=== PATIENT | male | born 1940 | race Caucasian/White ===

== ENCOUNTER → 2016-08-31 | Outpatient (CLI) | payer MEDICARE, OTHER ==
[~2016-08-31] MED LIST: 1-ME1LIQ PO; ALLO300T2 PO; ATEN-104 PO; HYDR12.56; HYZA100T4 PO; LORTA5 PO; SIMV20 PO
[2016-08-31 11:07] LABS: AUTOMATED NEUTROPHIL # 2.4 TH/MM3 (1.8-7.7); BASOPHIL % 0.9 % (0.0-2.0); EOSINOPHIL # 0.1 TH/MM3 (0-0.4); EOSINOPHIL % 2.7 % (0.0-4.0); HEMATOCRIT 36.2 % (39.0-51.0); LYMPH % 26.6 % (9.0-44.0); MEAN CELL VOLUME 91.3 FL (80.0-100.0); MEAN CORPUSCULAR HEMOGLOBIN 31.5 PG (27.0-34.0); MEAN CORPUSCULAR HGB CONC 34.5 % (32.0-36.0); MONO % 7.8 % (0.0-8.0); RED BLOOD COUNT 3.97 MIL/MM3 (4.50-5.90); RED CELL DISTRIBUTION WIDTH 14.2 % (11.6-17.2); WHITE BLOOD COUNT 3.9 TH/MM3 (4.0-11.0)
[2016-08-31 11:27] LABS: ALKALINE PHOSPHATASE 65 U/L (45-117); ALT (GPT) 22 U/L (12-78); ANION GAP 9 MEQ/L (5-15); AST (GOT) 20 U/L (15-37); BICARBONATE 26.3 MEQ/L (21.0-32.0); BLOOD UREA NITROGEN 21 MG/DL (7-18); CHLORIDE 107 MEQ/L (98-107); GLOMERULAR FILTRATION RATE 66 ML/MIN (>89); GLUCOSE,FASTING 89 MG/DL (74-99); HDL CHOLESTEROL 49.5 MG/DL (40.0-60.0); LDL CHOLESTEROL 91 MG/DL (0-99); POTASSIUM 3.9 MEQ/L (3.5-5.1); SODIUM (NA) 142 MEQ/L (136-145); TOTAL BILIRUBIN ADULT 0.9 MG/DL (0.2-1.0); URIC ACID 3.8 MG/DL (2.6-7.2)
[2016-08-31 13:11] LABS: HEMO FLAGS AUTO DIFF
[2016-08-31 13:19] LABS: PLATELET COUNT 8 TH/MM3 (150-450)
[2016-08-31 13:29] LABS: PLATELET ESTIMATE SMEAR RARE (NORMAL)
[2016-08-31 13:30] LABS: PLATELET MORPHOLOGY ENLARGED (NORMAL); SCAN/DIFF AUTO DIFF CONFIRMED
== END ==
LOC: PLAB 08:49
PROVIDERS: ATTEND Family Medicine
DX: E78.2 Mixed hyperlipidemia (principal); D69.3 Immune thrombocytopenic purpura
CPT/HCPCS: 36415; 80053; 80061; 84550; 85025

== ENCOUNTER → 2017-03-02 | Outpatient (CLI) | payer MEDICARE, OTHER ==
[2017-03-02 08:18] LABS: AUTOMATED NEUTROPHIL # 2.8 TH/MM3 (1.8-7.7); BASOPHIL % 0.6 % (0.0-2.0); EOSINOPHIL # 0.1 TH/MM3 (0-0.4); EOSINOPHIL % 2.9 % (0.0-4.0); HEMATOCRIT 37.9 % (39.0-51.0); LYMPH % 18.9 % (9.0-44.0); LYMPHOCYTE # 0.8 TH/MM3 (1.0-4.8); MEAN CELL VOLUME 91.6 FL (80.0-100.0); MEAN CORPUSCULAR HEMOGLOBIN 31.5 PG (27.0-34.0); MEAN CORPUSCULAR HGB CONC 34.3 % (32.0-36.0); MONO % 8.5 % (0.0-8.0); NEUT % 69.1 % (16.0-70.0); PLATELET COUNT 35 TH/MM3 (150-450); RED BLOOD COUNT 4.14 MIL/MM3 (4.50-5.90); RED CELL DISTRIBUTION WIDTH 14.3 % (11.6-17.2); WHITE BLOOD COUNT 4.1 TH/MM3 (4.0-11.0)
[2017-03-02 08:33] LABS: HEMO FLAGS AUTO DIFF
[2017-03-02 08:58] LABS: PLATELET ESTIMATE SMEAR LOW (NORMAL); PLATELET MORPHOLOGY ENLARGED (NORMAL); SCAN/DIFF AUTO DIFF CONFIRMED
[2017-03-02 10:12] LABS: ALT (GPT) 25 U/L (12-78); ANION GAP 7 MEQ/L (5-15); AST (GOT) 21 U/L (15-37); BICARBONATE 25.7 MEQ/L (21.0-32.0); BLOOD UREA NITROGEN 20 MG/DL (7-18); CHLORIDE 109 MEQ/L (98-107); GLOMERULAR FILTRATION RATE 69 ML/MIN (>89); GLUCOSE,FASTING 87 MG/DL (74-99); POTASSIUM 3.8 MEQ/L (3.5-5.1); SODIUM (NA) 142 MEQ/L (136-145); URIC ACID 4.4 MG/DL (2.6-7.2)
[2017-03-02 10:14] LABS: ALKALINE PHOSPHATASE 65 U/L (45-117); HDL CHOLESTEROL 52.2 MG/DL (40.0-60.0); LDL CHOLESTEROL 61 MG/DL (0-99); TOTAL BILIRUBIN ADULT 0.9 MG/DL (0.2-1.0)
== END ==
LOC: PLAB 07:55
PROVIDERS: ATTEND Family Medicine
DX: E78.2 Mixed hyperlipidemia (principal); D69.3 Immune thrombocytopenic purpura
CPT/HCPCS: 36415; 80053; 80061; 84550; 85025

== ENCOUNTER 2017-07-24 18:18 | Inpatient (IN) | payer MEDICARE, OTHER ==
[~2017-07-24] VITALS: Ht 177.8 cm; Wt 90.5 kg
[2017-07-24 18:44] VITALS: BP 186/95; PULSE 80; RESP 18; TEMP 98.2; O2SAT 95
--- NOTE | 2017-07-24 21:08 | PD ---
HPI Chief Complaint: Abnormal Results Time Seen by Provider: 20:53 Travel History International Travel<30 days: No Contact w/Intl Traveler<30days: No Traveled to known affect area: No History of Present Illness HPI The patient is a 76 year old male who presents to the [facility] emergency department with a history of being called by his customer experience professional office earlier today regarding abnormal labs. The patient was told that his platelet count was 1 and that he needed to go to the emergency department immediately. The patient reports that he has a history of ITP. The patient reports that every 6 weeks he has blood work drawn. His last platelet count was 49. He reports that he has been completely asymptomatic. He denies any recent bruising. He denies having any blood in his stool or black or tarry stools. He denies having any blood in his urine, epistaxis, or hemoptysis. The patient denies having any headaches. He reports that he played golf today and has overall been well. On review of systems otherwise he denies having any recent fevers, cough or congestion,neck pain, chest pain, shortness of breath, abdominal pain, vomiting, diarrhea, urinary symptoms, or neurologic symptoms. [facility] Past Medical History Narrative Medical The patient's past medical history is significant for non-Hodgkin's lymphoma stage I which was treated with radiation therapy and is currently in remission, history of ITP, gout, hyperlipidemia, hypertension, macular degeneration. Cancer: Yes (Lymphoma - Received Radiation and Chemo 2009) High Cholesterol: Yes Chemotherapy: Yes Diminished Hearing: No Hypertension: Yes Immunizations Current: Yes (shingles vaccine) Past Surgical History Narrative Surgical The patient's past surgical history is significant for bilateral knee replacement, cholecystectomy, lipoma removal from the back, [id number] placement, tonsillectomy, shoulder and finger surgery. Cholecystectomy: Yes Other Surgery: Yes (fatty benign tumor removal, Tumor Right Thigh- lymphoma) Social History Alcohol Use: Yes (2-3 drinks per day) Tobacco Use: No Substance Use: No Allergies-Medications (Allergen,Severity, Reaction): Coded Allergies: No Known Allergies (Unverified Allergy, Unknown, 07/24/17) Reported Meds & Prescriptions Reported Meds & Active Scripts Active Reported Atenolol 100 Mg Tab 100 Mg PO DAILY Clonidine (Clonidine HCl) 0.1 Mg Tab 0.1 Mg PO BID Simvastatin 10 Mg Tab 10 Mg PO DAILY Losartan (Losartan Potassium) 100 Mg Tab 100 Mg PO DAILY Amlodipine (Amlodipine Besylate) 10 Mg Tab 10 Mg PO DAILY Allopurinol 300 Mg Tab 300 Mg PO DAILY Review of Systems Except as stated in HPI: all other systems reviewed are Neg General / Constitutional: No: Fever Eyes: No: Visual changes HENT: No: Headaches Cardiovascular: No: Chest Pain or Discomfort Respiratory: No: Shortness of Breath Gastrointestinal: No: Abdominal Pain Genitourinary: No: Dysuria Musculoskeletal: No: Pain Skin: No Rash Neurologic: No: Weakness, Focal Abnormalities, Change in Mentation, Slurred Speech, Sensory Disturbance Psychiatric: No: Depression Endocrine: No: Polydipsia Hematologic/Lymphatic: No: Easy Bruising Physical Exam Narrative General: The patient is a well-developed well-nourished male in no acute distress. Head and Neck exam: Head is normocephalic atraumatic. Eyes: EOMI, pupils are equal round and reactive to light. Nose: Midline septum with pink mucous membranes Mouth: Dentition unremarkable. Moist mucus membranes. Posterior oropharynx is not erythematous. No tonsillar hypertrophy. Uvula midline. Airway patent. Neck: No palpable lymphadenopathy. No nuchal rigidity. No thyromegaly. Cardiovascular: Regular rate and rhythm without murmurs, gallops, or rubs. Lungs: Clear to auscultation bilaterally. No wheezes, rhonchi, or rales. Abdomen: Soft, without tenderness to palpation in all 4 quadrants of the abdomen. No guarding, rebound, or rigidity. Normal bowel sounds are audible. No tenderness on palpation of McBurney's point. Negative Lyle sign. Extremities: No clubbing, cyanosis, or edema. 2+ pulses in all 4 extremities. No calf tenderness on palpation. Back: No spinous process tenderness to palpation. No costovertebral angle tenderness to palpation. Neurologic Exam: Grossly nonfocal. Skin Exam: No rash noted. Intact skin that is warm and dry. Data Data Last Documented VS Vital Signs Date Time Temp Pulse Resp B/P (MAP) Pulse Ox O2 Delivery O2 Flow Rate FiO2 07/24/17 21:34 78 18 183/93 (123) 99 Room Air 07/24/17 18:44 98.2 Orders Orders Electrocardiogram (07/24/17 20:55) Complete Blood Count With Diff (07/24/17 20:55) Comprehensive Metabolic Panel (07/24/17 20:55) Troponin I (07/24/17 20:55) Prothrombin Time / Inr (Pt) (07/24/17 20:55) Act Partial Throm Time (Ptt) (07/24/17 20:55) Urinalysis - C+S If Indicated (07/24/17 20:55) Magnesium (Mg) (07/24/17 20:55) Chest, Single Ap (07/24/17 20:55) Iv Access Insert/Monitor (07/24/17 20:55) Ecg Monitoring (07/24/17 20:55) Oximetry (07/24/17 20:55) Type And Screen (07/24/17 20:55) Platelet Pheresis (07/24/17 20:55) Methylprednisolone So Succ Inj (Solumedr (07/25/17 00:00) Vital Signs (Adult) Q15MX4,Q1H (07/24/17 21:19) ^ Treatment Of Side Effects (07/24/17 21:19) Sodium Chlorid 0.9% 500 Ml Inj (Ns 500 M (07/24/17 21:30) Acetaminophen (Tylenol) (07/24/17 21:30) Dextrose 5% In [place] 500 Ml Inj (D5w 500 (07/24/17 22:19) Diphenhydramine (Benadryl) (07/24/17 21:30) Immune Globulin Inj (Privigen Inj) (07/24/17 22:30) Diphenhydramine Inj (Benadryl Inj) (07/24/17 22:30) Epinephrine (1:1000) Inj (Adrenalin (1:1 (07/24/17 22:30) Admit Order (Ed Use Only) (07/24/17 22:45) Labs Laboratory Tests Test 07/24/17 21:10 White Blood Count 5.4 TH/MM3 Red Blood Count 4.39 MIL/MM3 Hemoglobin 13.8 GM/DL Hematocrit 40.0 % Mean Corpuscular Volume 91.1 FL Mean Corpuscular Hemoglobin 31.5 PG Mean Corpuscular Hemoglobin Concent 34.6 % Red Cell Distribution Width 14.3 % Platelet Count 5 TH/MM3 Mean Platelet Volume 11.5 FL Neutrophils (%) (Auto) 64.8 % Lymphocytes (%) (Auto) 22.3 % Monocytes (%) (Auto) 9.0 % Eosinophils (%) (Auto) 3.1 % Basophils (%) (Auto) 0.8 % Neutrophils # (Auto) 3.5 TH/MM3 Lymphocytes # (Auto) 1.2 TH/MM3 Monocytes # (Auto) 0.5 TH/MM3 Eosinophils # (Auto) 0.2 TH/MM3 Basophils # (Auto) 0.0 TH/MM3 CBC Comment AUTO DIFF Differential Comment AUTO DIFF CONFIRMED Platelet Estimate RARE Platelet Morphology Comment ENLARGED Prothrombin Time 9.6 SEC Prothromb Time International Ratio 0.9 RATIO Activated Partial Thromboplast Time 30.7 SEC Blood Urea Nitrogen 16 MG/DL Creatinine 1.15 MG/DL Random Glucose 95 MG/DL Total Protein 7.6 GM/DL Albumin 4.2 GM/DL Calcium Level 8.8 MG/DL Magnesium Level 2.3 MG/DL Alkaline Phosphatase 78 U/L Aspartate Amino Transf (AST/SGOT) 20 U/L Alanine Aminotransferase (ALT/SGPT) 25 U/L Total Bilirubin 0.8 MG/DL Sodium Level 140 MEQ/L Potassium Level 3.7 MEQ/L Chloride Level 106 MEQ/L Carbon Dioxide Level 25.0 MEQ/L Anion Gap 9 MEQ/L Estimat Glomerular Filtration Rate 62 ML/MIN Troponin I LESS THAN 0.02 NG/ML MDM Medical Decision Making Medical Screen Exam Complete: Yes Emergency Medical Condition: Yes Medical Record Reviewed: Yes Interpretation(s) Last Impressions Chest X-Ray 07/24/172054 Signed Impressions: Service Date/Time: Monday, July 24, 2017 21:21 - CONCLUSION: No acute disease. Da Lorenzo MD Differential Diagnosis ITP, versus TTP, versus medication induced thrombocytopenia Narrative Course During the course of the patient's emergency department visit, the patient's history, examination, and differential diagnosis were reviewed with the patient. The patient was placed on a compliance monitor with oximetry and frequent blood pressure monitoring. The patient had IV access obtained and blood work sent for analysis. The patient was typed and screened for blood, 1 unit of platelet pheresis will be placed on hold. The patient at this time has no signs of active bleeding. A call has been placed out to the patient's customer experience professional, Dr. Turner. The patient had an EKG done on arrival that shows a sinus rhythm of 69, QRS duration is 109 ms, QTC [address] segment elevation. The patient was initially provided IVIG per the recommendations of his customer experience professional along with Solu-Medrol IV. 1 unit of platelet pheresis was also placed on hold. The patient's laboratory studies were reviewed and remarkable for white count of 5.4, hemoglobin 13.8, platelets 5, monocytes 9, CMP is unremarkable, troponin I is less than 0.02, PT 9.6, PTT 30.7, urinalysis is within normal limits Radiology studies were reviewed and remarkable for a chest x-ray that shows no acute cardiopulmonary disease. The patient's results were discussed with the patient, including the plan of care. I explained that further testing and/ or monitoring is indicated based on the patient's history, examination, and/ or laboratory findings. Therefore, I recommended admission for additional evaluation. The patient expressed understanding and was agreeable with this plan. The patient was admitted to the hospital in stable condition and sent to a bed under the care of the [facility] service. Physician Communication Physician Communication The patient's case including history, pertinent physical examination findings, and laboratory studies were discussed with Dr. Turner and Dr. Seth. It was agreed that the patient would be admitted to the [facility] service. Diagnosis Primary Impression: Chronic ITP (idiopathic thrombocytopenia) Additional Impression: Thrombocytopenia Admitting Information Admitting Physician Requests: it Jackie Leroy MD Jul 24, 2017 21:08
[2017-07-24 21:34] VITALS: BP 183/93; PULSE 78; RESP 18; O2SAT 99
[2017-07-24] MEDS ORDERED: SIMV10TA PO (21:34)
[2017-07-24] MEDS ORDERED: ALLO300T2 PO (21:34)
[2017-07-24] MEDS ORDERED: AMLO10TA2 PO (21:34)
[2017-07-24] MEDS ORDERED: ATEN100T PO (21:34)
[2017-07-24] MEDS ORDERED: CLON0.1T PO (21:34)
[2017-07-24] MEDS ORDERED: LOSA100T PO (21:34)
[2017-07-24 21:53] LABS: AUTOMATED NEUTROPHIL # 3.5 TH/MM3 (1.8-7.7); BASOPHIL % 0.8 % (0.0-2.0); EOSINOPHIL # 0.2 TH/MM3 (0-0.4); EOSINOPHIL % 3.1 % (0.0-4.0); HEMOGLOBIN 13.8 GM/DL (13.0-17.0); LYMPH % 22.3 % (9.0-44.0); LYMPHOCYTE # 1.2 TH/MM3 (1.0-4.8); MEAN CELL VOLUME 91.1 FL (80.0-100.0); MEAN CORPUSCULAR HEMOGLOBIN 31.5 PG (27.0-34.0); MEAN CORPUSCULAR HGB CONC 34.6 % (32.0-36.0); MEAN PLATELET VOLUME 11.5 FL (7.0-11.0); MONOCYTE # 0.5 TH/MM3 (0-0.9); NEUT % 64.8 % (16.0-70.0); RED BLOOD COUNT 4.39 MIL/MM3 (4.50-5.90); RED CELL DISTRIBUTION WIDTH 14.3 % (11.6-17.2); WHITE BLOOD COUNT 5.4 TH/MM3 (4.0-11.0)
--- NOTE | 2017-07-24 21:56 | RADRPT ---
EXAM DATE/TIME: 07/24/2017 21:21 [place] COMPARISON: No previous studies available for comparison. INDICATIONS : Low platelets. MEDICAL HISTORY : Lymphoma. SURGICAL HISTORY : Left shoulder repair. ENCOUNTER: Initial ACUITY: 1 day PAIN SCORE: 0/10 LOCATION: Bilateral chest FINDINGS: A single view of the chest demonstrates the lungs to be symmetrically aerated without evidence of mas s, infiltrate or effusion. The cardiomediastinal contours are unremarkable. Osseous structures are intact. CONCLUSION: No acute disease. Da Lorenzo MD on July 24, 2017 at 21:52 Board Certified Radiologist. This report was verified electronically.
[2017-07-24 22:02] LABS: PLATELET COUNT 5 TH/MM3 (150-450)
[2017-07-24 22:07] LABS: ALBUMIN 4.2 GM/DL (3.4-5.0); AST (GOT) 20 U/L (15-37); BLOOD UREA NITROGEN 16 MG/DL (7-18); CALCIUM 8.8 MG/DL (8.5-10.1); CHLORIDE 106 MEQ/L (98-107); CREATININE 1.15 MG/DL (0.60-1.30); GLOMERULAR FILTRATION RATE 62 ML/MIN (>89); GLUCOSE,RANDOM 95 MG/DL (74-106); MAGNESIUM 2.3 MG/DL (1.5-2.5); SODIUM (NA) 140 MEQ/L (136-145)
[2017-07-24 22:11] LABS: INTERNATIONAL NORMALIZED RATIO 0.9 RATIO; PROTHROMBIN TIME - PATIENT 9.6 SEC (9.8-11.6)
[2017-07-24 22:20] LABS: ALKALINE PHOSPHATASE 78 U/L (45-117); ALT (GPT) 25 U/L (12-78); TOTAL BILIRUBIN ADULT 0.8 MG/DL (0.2-1.0); TOTAL PROTEIN 7.6 GM/DL (6.4-8.2); TROPONIN I LESS THAN 0.02 NG/ML (0.02-0.05)
[2017-07-24] MEDS: diphenhydrAMINE HCL 25 MG CAP PO SCH (22:20)
[2017-07-24] MEDS: SODIUM CHLORID 0.9% 500 ML INJ 500 ML IV SCH (22:20)
[2017-07-24] MEDS: ACETAMINOPHEN 325 MG TAB PO SCH (22:20)
[2017-07-24] MEDS ORDERED: diphenhydrAMINE HCL 50 MG/ML VIAL IV PUSH PRN (22:30)
[2017-07-24] MEDS ORDERED: EPINEPHrine HCL (1:1000) 1 MG/ML VIAL OTHER PRN (22:30)
[2017-07-24] MEDS: DEXTROSE 5% IN WATE 500 ML INJ 500 ML OTHER SCH (23:34)
[2017-07-24] MEDS: IMMUNE GLOBULIN IV SCH (23:35)
[2017-07-25] VITALS (20 sets, daily range): BP systolic 143–188; BP diastolic 81–108; PULSE 69–100; RESP 16–18; TEMP 97.2–98.7; O2SAT 94–100
[2017-07-25 00:07] LABS: BILIRUBIN, URINE NEG (NEG); BLOOD, URINE NEG (NEG); GLUCOSE,URINE NEG (NEG); KETONE, URINE NEG (NEG); NITRITE,URINE NEG (NEG); URINE COLOR LIGHT-YELLOW (YELLW/STRAW); URINE LEUKOCYTE ESTERASE NEG (NEG)
[2017-07-25] MEDS ORDERED: SODIUM CHLORIDE 0.9% FLUSH 10 ML FLUSH IV FLUSH PRN (00:45)
[2017-07-25] MEDS ORDERED: ACETAMINOPHEN 325 MG TAB PO PRN (00:45)
[2017-07-25] MEDS ORDERED: PROCHLORPERAZINE 25 MG SUPP RECTAL PRN (00:45)
[2017-07-25] MEDS ORDERED: NALOXONE HCL 0.4 MG/ML AMP IV PUSH PRN (00:45)
--- NOTE | 2017-07-25 03:29 | HHI.HP ---
HPI [facility] Primary Care Physician Wiliam Brown M.D. Admission Diagnosis ITP with severe thrombocytopenia Diagnoses: Travel History International Travel<30 Days: No Contact w/Intl Traveler <30 Da: No Traveled to Known Affected Are: No History of Present Illness 76-year-old male with a past medical history significant for ITP, history of lymphoma, hypertension and hyperlipidemia presents the emergency department for the evaluation of thrombocytopenia. The patient is followed by his accreditation coordinator , Dr. Turner, who does outpatient lab work every 6 weeks. The patient had his lab work done today and was told to come into the emergency department as his platelet count was 1. On arrival to the emergency department, repeat platelet count was 5. The patient denies bleeding anywhere. No hematuria, no hematemesis no dark, tarry stools or bright red blood per rectum. He denies any chest pain or shortness of breath. No abdominal pain. No nausea/vomiting/ diarrhea. No fatigue or weakness. Patient reports he feels "great" and was playing golf earlier in the day. Review of Systems Except as stated in HPI: all other systems reviewed are Neg Past Family Social History Past Medical History ITP History of lymphoma Hypertension Hyperlipidemia Past Surgical History Voice discectomy Finger surgery status post trauma Left shoulder reconstruction Left thigh tumor removal Reported Medications Reported Meds & Active Scripts Active Reported Atenolol 100 Mg Tab 100 Mg PO DAILY Clonidine (Clonidine HCl) 0.1 Mg Tab 0.1 Mg PO BID Simvastatin 10 Mg Tab 10 Mg PO DAILY Losartan (Losartan Potassium) 100 Mg Tab 100 Mg PO DAILY Amlodipine (Amlodipine Besylate) 10 Mg Tab 10 Mg PO DAILY Allopurinol 300 Mg Tab 300 Mg PO DAILY Allergies: Coded Allergies: No Known Allergies (Unverified Allergy, Unknown, 07/24/17) Family History Father with CHF Social History Quit tobacco in 1984. Occasional alcohol. Denies illicit drugs. Physical Exam Vital Signs Vital Signs Date Time Temp Pulse Resp B/P (MAP) Pulse Ox O2 Delivery O2 Flow Rate FiO2 07/25/17 03:11 78 16 156/84 (108) 98 Room Air 07/25/17 01:44 98.1 72 16 155/85 (108) 100 Room Air 07/25/17 01:07 98.1 71 16 148/85 (106) 98 Room Air 07/25/17 00:09 98.3 70 16 146/81 (102) 95 Room Air 07/25/17 00:04 69 16 143/83 (103) 96 Room Air 07/24/17 23:35 85 16 156/86 07/24/17 21:34 78 18 183/93 (123) 99 Room Air 07/24/17 21:25 Room Air 07/24/17 18:44 98.2 80 18 186/95 (125) 95 Physical Exam GENERAL: male lying in bed SKIN: No rashes, ecchymoses or lesions. Cool and dry. HEAD: Atraumatic. Normocephalic. No temporal or scalp tenderness. EYES: Pupils equal round and reactive. Extraocular motions intact. No scleral icterus. No injection or drainage. ENT: Nose without bleeding, purulent drainage or septal hematoma. Throat without erythema, tonsillar hypertrophy or exudate. Uvula midline. Airway patent. NECK: Trachea midline. No JVD or lymphadenopathy. Supple, nontender, no meningeal signs. CARDIOVASCULAR: Regular rate and rhythm without murmurs, gallops, or rubs. RESPIRATORY: Clear to auscultation. Breath sounds equal bilaterally. No wheezes , rales, or rhonchi. GASTROINTESTINAL: Abdomen soft, non-tender, nondistended. No hepato-splenomegaly , or palpable masses. No guarding. MUSCULOSKELETAL: Extremities without clubbing, cyanosis, or edema. No joint tenderness, effusion, or edema noted. No calf tenderness. NEUROLOGICAL: Awake and alert. Cranial nerves II through XII intact. Motor and sensory grossly within normal limits. Normal speech. Laboratory Laboratory Tests Test 07/24/17 21:10 07/24/17 22:50 White Blood Count 5.4 Red Blood Count 4.39 Hemoglobin 13.8 Hematocrit 40.0 Mean Corpuscular Volume 91.1 Mean Corpuscular Hemoglobin 31.5 Mean Corpuscular Hemoglobin Concent 34.6 Red Cell Distribution Width 14.3 Platelet Count 5 Mean Platelet Volume 11.5 Neutrophils (%) (Auto) 64.8 Lymphocytes (%) (Auto) 22.3 Monocytes (%) (Auto) 9.0 Eosinophils (%) (Auto) 3.1 Basophils (%) (Auto) 0.8 Neutrophils # (Auto) 3.5 Lymphocytes # (Auto) 1.2 Monocytes # (Auto) 0.5 Eosinophils # (Auto) 0.2 Basophils # (Auto) 0.0 CBC Comment AUTO DIFF Differential Comment AUTO DIFF CONFIRMED Platelet Estimate RARE Platelet Morphology Comment ENLARGED Prothrombin Time 9.6 Prothromb Time International Ratio 0.9 Activated Partial Thromboplast Time 30.7 Blood Urea Nitrogen 16 Creatinine 1.15 Random Glucose 95 Total Protein 7.6 Albumin 4.2 Calcium Level 8.8 Magnesium Level 2.3 Alkaline Phosphatase 78 Aspartate Amino Transf (AST/SGOT) 20 Alanine Aminotransferase (ALT/SGPT) 25 Total Bilirubin 0.8 Sodium Level 140 Potassium Level 3.7 Chloride Level 106 Carbon Dioxide Level 25.0 Anion Gap 9 Estimat Glomerular Filtration Rate 62 Troponin I LESS THAN 0.02 Urine Color LIGHT-YELLOW Urine Turbidity CLEAR Urine pH 7.0 Urine Specific [place] 1.006 Urine Protein NEG Urine Glucose (UA) NEG Urine Ketones NEG Urine Occult Blood NEG Urine Nitrite NEG Urine Bilirubin NEG Urine Urobilinogen LESS THAN 2.0 Urine Leukocyte Esterase NEG Urine WBC LESS THAN 1 Microscopic Urinalysis Comment CULT NOT INDICATED Result Diagram: 07/24/17210907/24/172109 Caprini VTE Risk Assessment Caprini VTE Risk Assessment: Mod/High Risk (score >= 2) Caprini Risk Assessment Model Point Value = 1 Point Value = 2 Point Value = 3 Point Value = 5 Age 41-60 Minor surgery BMI > 25 kg/m2 Swollen legs Varicose veins or History of unexplained or recurrent spontaneous Oral contraceptives or hormone replacement Sepsis (< 1 month) Serious lung disease, including pneumonia (< 1 month) Abnormal pulmonary function Acute myocardial infarction Congestive heart failure (< 1 month) History of inflammatory bowel disease Medical patient at bed rest Age 61-74 Arthroscopic surgery Major open surgery (> 45 min) Laparoscopic surgery (> 45 min) Malignancy Confined to bed (> 72 hours) Immobilizing plaster cast Central venous access Age >= 75 History of VTE Family history of VTE Factor V Leiden Prothrombin [id number] Lupus anticoagulant Anticardiolipin antibodies Elevated serum homocysteine Heparin-induced thrombocytopenia Other congenital or acquired thrombophilia Stroke (< 1 month) Elective arthroplasty Hip, pelvis, or leg fracture Acute spinal cord injury (< 1 month) Prophylaxis Regimen Total Risk Factor Score Risk Level Prophylaxis Regimen 0-1 Low Early ambulation 2 Moderate Order ONE of the following: *Sequential Compression Device (SCD) *Heparin 5000 units SQ BID 3-4 Higher Order ONE of the following medications: *Heparin 5000 units SQ TID *Enoxaparin/Lovenox 40 mg SQ daily (WT < 150 kg, CrCl > 30 mL/min) *Enoxaparin/Lovenox 30 mg SQ daily (WT < 150 kg, CrCl > 10-29 mL/min) *Enoxaparin/Lovenox 30 mg SQ BID (WT < 150 kg, CrCl > 30 mL/min) AND/OR *Sequential Compression Device (SCD) 5 or more Highest Order ONE of the following medications: *Heparin 5000 units SQ TID (Preferred with Epidurals) *Enoxaparin/Lovenox 40 mg SQ daily (WT < 150 kg, CrCl > 30 mL/min) *Enoxaparin/Lovenox 30 mg SQ daily (WT < 150 kg, CrCl > 10-29 mL/min) *Enoxaparin/Lovenox 30 mg SQ BID (WT < 150 kg, CrCl > 30 mL/min) AND *Sequential Compression Device (SCD) Assessment and Plan Assessment and Plan Assessment/plan: 1. Thrombocytopenia Patient with history of ITP Patient's oncologist, Dr. Turner consulted, appreciate recommendations IVIG and Solu-Medrol per hematology recommendations Monitor for signs of bleeding 2. Hypertension/hyperlipidemia Continue home medications FEN Heart healthy diet Electrolytes: Monitor and replete when necessary Holding pharmacologic anticoagulation secondary to thrombocytopenia Physician Certification 2 Midnight Certification Type: Admission for Inpatient Services Order for Inpatient Services The services are ordered in accordance with Medicare regulations or non- Medicare payer requirements, as applicable. In the case of services not specified as inpatient-only, they are appropriately provided as inpatient services in accordance with the 2-midnight benchmark. Estimated LOS (days): 2 2 days is the estimated time the patient will need to remain in the hospital, assuming treatment plan goals are met and no additional complications. Post-Hospital Plan: Not yet determined Madelin Seth MD Jul 25, 2017 03:29
[2017-07-25] MEDS: methylPREDNISolone SOD SUCC 40 MG/1 ML VIAL IV PUSH SCH ×3 (06:22→18:06)
[2017-07-25] MEDS: cloNIDine HCL 0.1 MG TAB PO SCH ×2 (09:26→20:43)
[2017-07-25] MEDS: LOSARTAN 50 MG TAB PO SCH (09:26)
[2017-07-25] MEDS: PRAVASTATIN SOD 20 MG TAB PO SCH (09:26)
[2017-07-25] MEDS: ALLOPURINOL 300 MG TAB PO SCH (09:26)
[2017-07-25] MEDS: SODIUM CHLORIDE 0.9% FLUSH 10 ML FLUSH IV FLUSH SCH ×2 (09:27→20:45)
--- NOTE | 2017-07-25 11:01 | HHI.PR ---
Subjective Remarks Patient reports he is feeling great. No evidence of bleeding. Objective Vitals Vital Signs Date Time Temp Pulse Resp B/P (MAP) Pulse Ox O2 Delivery O2 Flow Rate FiO2 07/25/17 10:00 100 07/25/17 09:00 92 07/25/17 08:01 76 07/25/17 08:00 97.7 93 18 172/101 (124) 94 07/25/17 08:00 86 07/25/17 07:00 83 07/25/17 06:00 98.5 81 17 96 07/25/17 04:50 76 17 155/93 (113) 95 07/25/17 04:12 07/25/17 03:11 78 16 156/84 (108) 98 Room Air 07/25/17 01:44 98.1 72 16 155/85 (108) 100 Room Air 07/25/17 01:07 98.1 71 16 148/85 (106) 98 Room Air 07/25/17 00:09 98.3 70 16 146/81 (102) 95 Room Air 07/25/17 00:04 69 16 143/83 (103) 96 Room Air 07/24/17 23:35 85 16 156/86 07/24/17 21:34 78 18 183/93 (123) 99 Room Air 07/24/17 21:25 Room Air 07/24/17 18:44 98.2 80 18 186/95 (125) 95 I/O 07/24/17 07/24/17 07/24/17 07/25/17 07/25/17 07/25/17 07:00 15:00 23:00 07:00 15:00 23:00 Intake Total 240 ml Balance 240 ml Intake Oral 240 ml # Voids 4 Result Diagram: 07/24/17210907/24/172109 Objective Remarks GENERAL: This is a well-nourished, well-developed patient, in no apparent distress. CARDIOVASCULAR: Normal rate and regular rhythm without murmurs, gallops, or rubs. RESPIRATORY: Good respiratory efforts. Breath sounds equal and clear to auscultation bilaterally. GASTROINTESTINAL: Abdomen soft, non-tender, non-distended. Normal active bowel sounds MUSCULOSKELETAL: Extremities without cyanosis, or edema. NEURO: Alert & Oriented x4 to person, place, time, situation. Moves all ext x4 PSYCH: Appropriate mood and affect. A/P Assessment and Plan 76-year-old male with: 1. Thrombocytopenia Patient with history of ITP Patient's oncologist, Dr. Turner consulted, appreciate recommendations IVIG and Solu-Medrol per hematology recommendations Monitor for signs of bleeding 2. Hypertension/hyperlipidemia Continue home medications FEN Heart healthy diet Electrolytes: Monitor and replete when necessary Holding pharmacologic anticoagulation secondary to thrombocytopenia Discharge Planning Can discharge once cleared by hematology. Likely tomorrow. Coleen Cisneros MD Jul 25, 2017 11:01
[2017-07-25] MEDS: ATENOLOL 100 MG TAB PO SCH (11:40)
--- NOTE | 2017-07-25 16:10 | EKG ---
Date Performed: 07/24/2017 Time Performed: 21:07:24 PTAGE: 76 years EKG: Sinus rhythm NORMAL ECG NO PREVIOUS TRACING DOCTOR: Shamar Wagoner Interpretating Date/Time 07/25/2017 16:08:19
[2017-07-25] MEDS ORDERED: cloNIDine HCL 0.1 MG TAB PO ONE (21:45)
[2017-07-25] MEDS: diphenhydrAMINE HCL 25 MG CAP PO SCH (21:50)
[2017-07-25] MEDS: ACETAMINOPHEN 325 MG TAB PO SCH (21:50)
[2017-07-25] MEDS: SODIUM CHLORID 0.9% 500 ML INJ 500 ML IV SCH (21:55)
[2017-07-25] MEDS: DEXTROSE 5% IN WATE 500 ML INJ 500 ML OTHER SCH (23:18)
[2017-07-25] MEDS: IMMUNE GLOBULIN IV SCH (23:26)
[2017-07-26] VITALS (10 sets, daily range): BP systolic 141–179; BP diastolic 82–100; PULSE 78–87; RESP 16–18; TEMP 97.5–98.7; O2SAT 94–97
[2017-07-26] MEDS: methylPREDNISolone SOD SUCC 40 MG/1 ML VIAL IV PUSH SCH ×2 (00:13→06:14)
[2017-07-26 06:43] LABS: AUTOMATED NEUTROPHIL # 8.3 TH/MM3 (1.8-7.7); HEMATOCRIT 34.8 % (39.0-51.0); HEMOGLOBIN 12.2 GM/DL (13.0-17.0); LYMPH % 3.5 % (9.0-44.0); LYMPHOCYTE # 0.3 TH/MM3 (1.0-4.8); MEAN CELL VOLUME 91.5 FL (80.0-100.0); MEAN CORPUSCULAR HEMOGLOBIN 31.9 PG (27.0-34.0); MEAN CORPUSCULAR HGB CONC 34.9 % (32.0-36.0); MEAN PLATELET VOLUME 9.8 FL (7.0-11.0); MONO % 1.3 % (0.0-8.0); MONOCYTE # 0.1 TH/MM3 (0-0.9); NEUT % 95.2 % (16.0-70.0); RED BLOOD COUNT 3.81 MIL/MM3 (4.50-5.90); RED CELL DISTRIBUTION WIDTH 14.3 % (11.6-17.2); WHITE BLOOD COUNT 8.7 TH/MM3 (4.0-11.0)
[2017-07-26 07:09] LABS: ALBUMIN 3.2 GM/DL (3.4-5.0); ALT (GPT) 19 U/L (12-78); AST (GOT) 19 U/L (15-37); BICARBONATE 22.5 MEQ/L (21.0-32.0); BLOOD UREA NITROGEN 22 MG/DL (7-18); CALCIUM 8.1 MG/DL (8.5-10.1); CHLORIDE 103 MEQ/L (98-107); CREATININE 1.14 MG/DL (0.60-1.30); GLOMERULAR FILTRATION RATE 63 ML/MIN (>89); GLUCOSE,RANDOM 185 MG/DL (74-106); SODIUM (NA) 134 MEQ/L (136-145)
[2017-07-26 07:13] LABS: ALKALINE PHOSPHATASE 62 U/L (45-117); TOTAL BILIRUBIN ADULT 0.5 MG/DL (0.2-1.0); TOTAL PROTEIN 9.6 GM/DL (6.4-8.2)
[2017-07-26 07:34] LABS: PLATELET COUNT 9 TH/MM3 (150-450)
[2017-07-26] MEDS ORDERED: PRED20 PO ×2 (08:52→09:03)
[2017-07-26] MEDS ORDERED: PANT20 PO (08:52)
[2017-07-26] MEDS: ALLOPURINOL 300 MG TAB PO SCH (08:55)
[2017-07-26] MEDS: cloNIDine HCL 0.1 MG TAB PO SCH (08:55)
[2017-07-26] MEDS: PRAVASTATIN SOD 20 MG TAB PO SCH (08:55)
[2017-07-26] MEDS: LOSARTAN 50 MG TAB PO SCH (08:55)
[2017-07-26] MEDS: ATENOLOL 100 MG TAB PO SCH (08:56)
[2017-07-26] MEDS: SODIUM CHLORIDE 0.9% FLUSH 10 ML FLUSH IV FLUSH SCH (08:58)
--- NOTE | 2017-07-26 09:28 | HHI.PR ---
Subjective Remarks 76-year-old male with a past medical history significant for ITP, history of lymphoma, hypertension and hyperlipidemia presents the emergency department for the evaluation of thrombocytopenia. 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 Turner, who does outpatient lab work every 6 weeks. The patient had his lab work done today and was told to come into the emergency department as his platelet count was 1. On arrival to the emergency department, repeat platelet count was 5. The patient denies bleeding anywhere. No hematuria, no hematemesis no dark, tarry stools or bright red blood per rectum. He denies any chest pain or shortness of breath. No abdominal pain. No nausea/vomiting/ diarrhea. No fatigue or weakness. Patient reports he feels "great" and was playing golf earlier in the day. 4-3 Patient reports he is feeling great. No evidence of bleeding. 4-4 SEEN AND CLEARED BY ONCOLOGY DC ON PREDNISONE AND PROTONIX DC TO HOME DW ONCOLOGY AND PT AND RN Objective Vitals Vital Signs Date Time Temp Pulse Resp B/P (MAP) Pulse Ox O2 Delivery O2 Flow Rate FiO2 07/26/17 08:45 97.7 79 16 179/100 (126) 07/26/17 06:20 97.5 87 18 165/93 (117) 96 07/26/17 05:47 97.8 87 16 165/88 (113) 97 07/26/17 04:50 97.9 86 16 150/82 (104) 95 07/26/17 03:49 97.6 82 16 162/91 (114) 95 07/26/17 02:45 97.8 79 16 152/83 (106) 95 07/26/17 01:45 78 18 148/87 07/26/17 01:41 97.7 78 18 148/87 (107) 97 07/26/17 00:55 79 16 146/84 07/26/17 00:51 97.8 79 16 146/84 (104) 94 07/26/17 00:25 98.7 81 16 147/84 (105) 94 07/26/17 00:17 84 16 141/85 07/26/17 00:05 98.4 84 16 141/85 (103) 94 07/25/17 23:44 98.7 80 16 143/81 (101) 96 07/25/17 23:26 86 16 147/87 07/25/17 23:03 98.0 86 16 147/87 (107) 96 07/25/17 21:40 188/105 (132) 07/25/17 21:31 183/108 (133) 07/25/17 20:38 97.5 180/107 (131) 07/25/17 20:34 87 16 179/107 (131) 97 07/25/17 16:00 97.2 95 18 163/96 (118) 95 07/25/17 12:00 98.3 95 18 156/93 (114) 96 07/25/17 10:00 100 I/O 07/25/17 07/25/17 07/25/17 07/26/17 07/26/17 07/26/17 07:00 15:00 23:00 07:00 15:00 23:00 Intake Total 1140 ml 1340 ml 1880 ml Output Total 1100 ml Balance 1140 ml 1340 ml 780 ml Intake Oral 240 ml 1340 ml 480 ml IV Total 900 ml 1400 ml Output Urine Total 1100 ml # Voids 4 10 Result Diagram: 07/26/17 0610 07/26/17 0610 Other Results Laboratory Tests Test 07/24/17 21:10 07/24/17 22:50 07/26/17 06:10 White Blood Count 5.4 TH/MM3 8.7 TH/MM3 Red Blood Count 4.39 MIL/MM3 3.81 MIL/MM3 Hemoglobin 13.8 GM/DL 12.2 GM/DL Hematocrit 40.0 % 34.8 % Mean Corpuscular Volume 91.1 FL 91.5 FL Mean Corpuscular Hemoglobin 31.5 PG 31.9 PG Mean Corpuscular Hemoglobin Concent 34.6 % 34.9 % Red Cell Distribution Width 14.3 % 14.3 % Platelet Count 5 TH/MM3 9 TH/MM3 Mean Platelet Volume 11.5 FL 9.8 FL Neutrophils (%) (Auto) 64.8 % 95.2 % Lymphocytes (%) (Auto) 22.3 % 3.5 % Monocytes (%) (Auto) 9.0 % 1.3 % Eosinophils (%) (Auto) 3.1 % 0.0 % Basophils (%) (Auto) 0.8 % 0.0 % Neutrophils # (Auto) 3.5 TH/MM3 8.3 TH/MM3 Lymphocytes # (Auto) 1.2 TH/MM3 0.3 TH/MM3 Monocytes # (Auto) 0.5 TH/MM3 0.1 TH/MM3 Eosinophils # (Auto) 0.2 TH/MM3 0.0 TH/MM3 Basophils # (Auto) 0.0 TH/MM3 0.0 TH/MM3 CBC Comment AUTO DIFF AUTO DIFF Differential Comment AUTO DIFF CONFIRMED AUTO DIFF CONFIRMED Platelet Estimate RARE RARE Platelet Morphology Comment ENLARGED ENLARGED Prothrombin Time 9.6 SEC Prothromb Time International Ratio 0.9 RATIO Activated Partial Thromboplast Time 30.7 SEC Blood Urea Nitrogen 16 MG/DL 22 MG/DL Creatinine 1.15 MG/DL 1.14 MG/DL Random Glucose 95 MG/DL 185 MG/DL Total Protein 7.6 GM/DL 9.6 GM/DL Albumin 4.2 GM/DL 3.2 GM/DL Calcium Level 8.8 MG/DL 8.1 MG/DL Magnesium Level 2.3 MG/DL Alkaline Phosphatase 78 U/L 62 U/L Aspartate Amino Transf (AST/SGOT) 20 U/L 19 U/L Alanine Aminotransferase (ALT/SGPT) 25 U/L 19 U/L Total Bilirubin 0.8 MG/DL 0.5 MG/DL Sodium Level 140 MEQ/L 134 MEQ/L Potassium Level 3.7 MEQ/L 3.6 MEQ/L Chloride Level 106 MEQ/L 103 MEQ/L Carbon Dioxide Level 25.0 MEQ/L 22.5 MEQ/L Anion Gap 9 MEQ/L 9 MEQ/L Estimat Glomerular Filtration Rate 62 ML/MIN 63 ML/MIN Troponin I LESS THAN 0.02 NG/ML Urine Color LIGHT-YELLOW Urine Turbidity CLEAR Urine pH 7.0 Urine Specific [place] 1.006 Urine Protein NEG mg/dL Urine Glucose (UA) NEG mg/dL Urine Ketones NEG mg/dL Urine Occult Blood NEG Urine Nitrite NEG Urine Bilirubin NEG Urine Urobilinogen LESS THAN 2.0 MG/DL Urine Leukocyte Esterase NEG Urine WBC LESS THAN 1 /hpf Microscopic Urinalysis Comment CULT NOT INDICATED Imaging Last Impressions Chest X-Ray 07/24/172054 Signed Impressions: Service Date/Time: Monday, July 24, 2017 21:21 - CONCLUSION: No acute disease. Da Lorenzo MD Objective Remarks GENERAL: AWAKE ALERT AND ORIENTED X3 IN NAD SKIN: Warm and dry. HEAD: Atraumatic. Normocephalic. EYES: Pupils equal and round. No scleral icterus. No injection or drainage. EOMI GLASSES ENT: No nasal bleeding or discharge. Mucous membranes pink and moist. TONGUE MIDLINE NECK: Trachea midline. No JVD. SUPPLE CARDIOVASCULAR: Regular rate and rhythm. S1, S2 NO S3 OR S4 RESPIRATORY: No accessory muscle use. Clear to auscultation. Breath sounds equal bilaterally. GASTROINTESTINAL: Abdomen soft, non-tender, nondistended. Hepatic and splenic margins not palpable. MUSCULOSKELETAL: Extremities without clubbing, cyanosis, or edema. No obvious deformities. NEUROLOGICAL: Awake and alert. No obvious cranial nerve deficits. Motor grossly within normal limits. Five out of 5 muscle strength in the arms and legs. Normal speech. PSYCHIATRIC: Appropriate mood and affect; insight and judgment normal. Procedures NONE Medications and IVs Current Medications Methylprednisolone Sodium Succinate (SoluMEDROL INJ) 40 mg Q6HR IV PUSH Last administered on 07/26/17 06:14; Start 07/25/17 at 00:00 Sodium Chloride 500 ml @ 500 mls/hr Q24H IV Last administered on 07/25/17 21: 55; Start 07/24/17 at 21:30; Stop 07/25/17 at 22:29; Status DC Acetaminophen (Tylenol) 650 mg Q24H PO Last administered on 07/25/17 21:50; Start 07/24/17 at 21:30; Stop 07/26/17 at 21:29 Dextrose 500 ml @ 30 mls/hr [id number] OTHER Last administered on 07/25/17 23:18 ; Start 07/24/17 at 22:19; Stop 07/26/17 at 07:38; Status DC Diphenhydramine HCl (Benadryl) 25 mg Q24H PO Last administered on 07/25/17 21: 50; Start 07/24/17 at 21:30; Stop 07/26/17 at 21:29 Immune Globulin 90 gm/Syringe / Bag 900 ml @ 27.13 mls/ hr Q24H IV Last administered on 07/25/17 23:26; Start 07/24/17 at 22:30; Stop 07/26/17 at 22:29 Diphenhydramine HCl (Benadryl Inj) 50 mg UNSCH PRN IV PUSH ALLERGIC REACTION; Start 07/24/17 at 22:30; Stop 07/27/17 at 22:29 Epinephrine HCl (Adrenalin (1:1000) Inj) 0.3 mg Q10M PRN OTHER ANAPHYLACTIC REACTION; Start 07/24/17 at 22:30; Stop 07/27/17 at 22:29 Sodium Chloride (NS Flush) 2 ml UNSCH PRN IV FLUSH FLUSH AFTER USING IV ACCESS ; Start 07/25/17 at 00:45 Sodium Chloride (NS Flush) 2 ml BID IV FLUSH Last administered on 07/26/17 08: 58; Start 07/25/17 at 09:00 Acetaminophen (Tylenol) 650 mg Q4H PRN PO TEMP > 100.4; Start 07/25/17 at 00:45 Prochlorperazine (Compazine Supp) 25 mg Q12H PRN RECTAL NAUSEA OR VOMITING; Start 07/25/17 at 00:45 Naloxone HCl (Narcan Inj) 0.4 mg UNSCH PRN IV PUSH SEE LABEL COMMENTS; Start at 00:45 Allopurinol (Zyloprim) 300 mg DAILY PO Last administered on 07/26/17 08:55; Start 07/25/17 at 09:00 Amlodipine Besylate (Norvasc) 10 mg DAILY PO Last administered on 07/26/17 08: 55; Start 07/25/17 at 09:00 Atenolol (Tenormin) 100 mg DAILY PO Last administered on 07/26/17 08:56; Start 07/25/17 at 09:00 Clonidine (Catapres) 0.1 mg BID PO Last administered on 07/26/17 08:55; Start 07/25/17 at 09:00 Losartan Potassium (Cozaar) 100 mg DAILY PO Last administered on 07/26/17 08:55 ; Start 07/25/17 at 09:00 Pravastatin Sodium (Pravachol) 20 mg DAILY PO Last administered on 07/26/17 08: 55; Start 07/25/17 at 09:00 Clonidine (Catapres) 0.1 mg ONCE ONCE PO Last administered on 07/25/17 21:49; Start 07/25/17 at 21:45; Stop 07/25/17 at 21:46; Status DC A/P Assessment and Plan 76-year-old male with: 1. Thrombocytopenia Patient with history of ITP Patient's oncologist, Dr. Turner consulted, appreciate recommendations IVIG and Solu-Medrol per hematology recommendations Monitor for signs of bleeding CLEARED BY ONCOLOGY DC TO HOME ON PREDNISONE AND PROTONIX 2. Hypertension/hyperlipidemia Continue home medications FEN Heart healthy diet Electrolytes: Monitor and replete when necessary Holding pharmacologic anticoagulation secondary to thrombocytopenia Discharge Planning DC TO HOME TODAY Geoff Castillo DO Jul 26, 2017 09:28
--- NOTE | 2017-07-26 09:31 | HHI.DS ---
Discharge Summary Admission Date Jul 24, 2017 at 22:46 Discharge Date: Jul 26, 2017 Admitting Diagnosis ITP with severe thrombocytopenia (1) Hypertension ICD Code: I10 - Essential (primary) hypertension Diagnosis: Secondary (2) Hypercholesterolemia ICD Code: E78.00 - Pure hypercholesterolemia, unspecified Diagnosis: Secondary (3) Thrombocytopenia ICD Code: D69.6 - Thrombocytopenia, unspecified Diagnosis: Principal Status: Acute (4) Chronic ITP (idiopathic thrombocytopenia) ICD Code: D69.3 - Immune thrombocytopenic purpura Diagnosis: Principal Status: Acute Procedures NONE Brief History - From Admission 76-year-old male with a past medical history significant for ITP, history of lymphoma, hypertension and hyperlipidemia presents the emergency department for the evaluation of thrombocytopenia. The patient is followed by his sports management internship , Dr. Turner, who does outpatient lab work every 6 weeks. The patient had his lab work done today and was told to come into the emergency department as his platelet count was 1. On arrival to the emergency department, repeat platelet count was 5. The patient denies bleeding anywhere. No hematuria, no hematemesis no dark, tarry stools or bright red blood per rectum. He denies any chest pain or shortness of breath. No abdominal pain. No nausea/vomiting/ diarrhea. No fatigue or weakness. Patient reports he feels "great" and was playing golf earlier in the day. CBC/BMP: 07/26/17 0610 07/26/17 0610 Significant Findings Laboratory Tests Test 07/24/17 21:10 07/24/17 22:50 07/26/17 06:10 Red Blood Count 4.39 MIL/MM3 (4.50-5.90) 3.81 MIL/MM3 (4.50-5.90) Platelet Count 5 TH/MM3 (150-450) 9 TH/MM3 (150-450) Mean Platelet Volume 11.5 FL (7.0-11.0) Monocytes (%) (Auto) 9.0 % (0.0-8.0) Platelet Estimate RARE (NORMAL) RARE (NORMAL) Platelet Morphology Comment ENLARGED (NORMAL) ENLARGED (NORMAL) Prothrombin Time 9.6 SEC (9.8-11.6) Activated Partial Thromboplast Time 30.7 SEC (24.3-30.1) Estimat Glomerular Filtration Rate 62 ML/MIN (>89) 63 ML/MIN (>89) Troponin I LESS THAN 0.02 NG/ML Hemoglobin 12.2 GM/DL (13.0-17.0) Hematocrit 34.8 % (39.0-51.0) Neutrophils (%) (Auto) 95.2 % (16.0-70.0) Lymphocytes (%) (Auto) 3.5 % (9.0-44.0) Neutrophils # (Auto) 8.3 TH/MM3 (1.8-7.7) Lymphocytes # (Auto) 0.3 TH/MM3 (1.0-4.8) Blood Urea Nitrogen 22 MG/DL (7-18) Random Glucose 185 MG/DL (74-106) Total Protein 9.6 GM/DL (6.4-8.2) Albumin 3.2 GM/DL (3.4-5.0) Calcium Level 8.1 MG/DL (8.5-10.1) Sodium Level 134 MEQ/L (136-145) Imaging Last Impressions Chest X-Ray 07/24/172054 Signed Impressions: Service Date/Time: Monday, July 24, 2017 21:21 - CONCLUSION: No acute disease. Da Lorenzo MD PE at Discharge GENERAL: AWAKE ALERT AND ORIENTED X3 IN NAD SKIN: Warm and dry. HEAD: Atraumatic. Normocephalic. EYES: Pupils equal and round. No scleral icterus. No injection or drainage. EOMI GLASSES ENT: No nasal bleeding or discharge. Mucous membranes pink and moist. TONGUE MIDLINE NECK: Trachea midline. No JVD. SUPPLE CARDIOVASCULAR: Regular rate and rhythm. S1, S2 NO S3 OR S4 RESPIRATORY: No accessory muscle use. Clear to auscultation. Breath sounds equal bilaterally. GASTROINTESTINAL: Abdomen soft, non-tender, nondistended. Hepatic and splenic margins not palpable. MUSCULOSKELETAL: Extremities without clubbing, cyanosis, or edema. No obvious deformities. NEUROLOGICAL: Awake and alert. No obvious cranial nerve deficits. Motor grossly within normal limits. Five out of 5 muscle strength in the arms and legs. Normal speech. PSYCHIATRIC: Appropriate mood and affect; insight and judgment normal. Hospital Course 76-year-old male with a past medical history significant for ITP, history of lymphoma, hypertension and hyperlipidemia presents the emergency department for the evaluation of thrombocytopenia. The patient is followed by his sports management internship , Dr. Turner, who does outpatient lab work every 6 weeks. The patient had his lab work done today and was told to come into the emergency department as his platelet count was 1. On arrival to the emergency department, repeat platelet count was 5. The patient denies bleeding anywhere. No hematuria, no hematemesis no dark, tarry stools or bright red blood per rectum. He denies any chest pain or shortness of breath. No abdominal pain. No nausea/vomiting/ diarrhea. No fatigue or weakness. Patient reports he feels "great" and was playing golf earlier in the day. 4-3 Patient reports he is feeling great. No evidence of bleeding. 4-4 SEEN AND CLEARED BY ONCOLOGY DC ON PREDNISONE AND PROTONIX DC TO HOME DW ONCOLOGY AND PT AND RN Pt Condition on Discharge: Good Discharge Disposition: Discharge Home Discharge Time: <= 30 minutes Discharge Instructions DIET: Follow Instructions for: Heart Healthy Diet Speech Therapy-Diet Recommends: Regular Activities you can perform: Regular-No Restrictions Follow up Referrals: Oncology/Hematology - 1 Week with Keshia Turner MD PCP Follow-up - 1 Week with Wiliam Brown M.d. New Medications: Pantoprazole (Protonix) 20 Mg Tab 20 MG PO DAILY for Reflux, #30 TAB 0 Refills Prednisone (Prednisone) 20 Mg Tab 40 MG PO BID for ITP for 8 Days, #32 TAB 0 Refills Take 40 mg (2 tablets) twice daily Continued Medications: Allopurinol (Allopurinol) 300 Mg Tab 300 MG PO DAILY for Gout, #30 TAB 0 Refills Amlodipine (Amlodipine) 10 Mg Tab 10 MG PO DAILY for Blood Pressure Management, #30 TAB 0 Refills Atenolol (Atenolol) 100 Mg Tab 100 MG PO DAILY for Blood Pressure Management, #30 TAB 0 Refills Clonidine (Clonidine) 0.1 Mg Tab 0.1 MG PO BID for Blood Pressure Management, #60 TAB 0 Refills Losartan (Losartan) 100 Mg Tab 100 MG PO DAILY for Blood Pressure Management, #30 TAB 0 Refills Simvastatin (Simvastatin) 10 Mg Tab 10 MG PO DAILY for Cholesterol Management, #30 TAB 0 Refills Geoff Castillo DO Jul 26, 2017 09:31
--- NOTE | 2017-07-26 09:58 | PD.ONC.PN ---
Subjective Subjective Remarks Afebrile overnight. Patient resting in room fully dressed and ready to go. finished his second IVIG infusion overnight. denies bleeding. wants to go home. Objective Data Date Time Temp Pulse Resp B/P (MAP) Pulse Ox O2 Delivery O2 Flow Rate FiO2 07/26/17 08:45 97.7 79 16 179/100 (126) 07/26/17 06:20 97.5 87 18 165/93 (117) 96 07/26/17 05:47 97.8 87 16 165/88 (113) 97 07/26/17 04:50 97.9 86 16 150/82 (104) 95 07/26/17 03:49 97.6 82 16 162/91 (114) 95 07/26/17 02:45 97.8 79 16 152/83 (106) 95 07/26/17 01:45 78 18 148/87 07/26/17 01:41 97.7 78 18 148/87 (107) 97 07/26/17 00:55 79 16 146/84 07/26/17 00:51 97.8 79 16 146/84 (104) 94 07/26/17 00:25 98.7 81 16 147/84 (105) 94 07/26/17 00:17 84 16 141/85 07/26/17 00:05 98.4 84 16 141/85 (103) 94 07/25/17 23:44 98.7 80 16 143/81 (101) 96 07/25/17 23:26 86 16 147/87 07/25/17 23:03 98.0 86 16 147/87 (107) 96 07/25/17 21:40 188/105 (132) 07/25/17 21:31 183/108 (133) 07/25/17 20:38 97.5 180/107 (131) 07/25/17 20:34 87 16 179/107 (131) 97 07/25/17 16:00 97.2 95 18 163/96 (118) 95 07/25/17 12:00 98.3 95 18 156/93 (114) 96 07/25/17 10:00 100 07/26/17 07/26/17 07/26/17 07:00 15:00 23:00 Intake Total 1880 ml Output Total 1100 ml Balance 780 ml Result Diagram: 07/26/17 0610 07/26/17 0610 Laboratory Results Laboratory Tests Test 07/26/17 06:10 White Blood Count 8.7 TH/MM3 Red Blood Count 3.81 MIL/MM3 Hemoglobin 12.2 GM/DL Hematocrit 34.8 % Mean Corpuscular Volume 91.5 FL Mean Corpuscular Hemoglobin 31.9 PG Mean Corpuscular Hemoglobin Concent 34.9 % Red Cell Distribution Width 14.3 % Platelet Count 9 TH/MM3 Mean Platelet Volume 9.8 FL Neutrophils (%) (Auto) 95.2 % Lymphocytes (%) (Auto) 3.5 % Monocytes (%) (Auto) 1.3 % Eosinophils (%) (Auto) 0.0 % Basophils (%) (Auto) 0.0 % Neutrophils # (Auto) 8.3 TH/MM3 Lymphocytes # (Auto) 0.3 TH/MM3 Monocytes # (Auto) 0.1 TH/MM3 Eosinophils # (Auto) 0.0 TH/MM3 Basophils # (Auto) 0.0 TH/MM3 CBC Comment AUTO DIFF Differential Comment AUTO DIFF CONFIRMED Platelet Estimate RARE Platelet Morphology Comment ENLARGED Blood Urea Nitrogen 22 MG/DL Creatinine 1.14 MG/DL Random Glucose 185 MG/DL Total Protein 9.6 GM/DL Albumin 3.2 GM/DL Calcium Level 8.1 MG/DL Alkaline Phosphatase 62 U/L Aspartate Amino Transf (AST/SGOT) 19 U/L Alanine Aminotransferase (ALT/SGPT) 19 U/L Total Bilirubin 0.5 MG/DL Sodium Level 134 MEQ/L Potassium Level 3.6 MEQ/L Chloride Level 103 MEQ/L Carbon Dioxide Level 22.5 MEQ/L Anion Gap 9 MEQ/L Estimat Glomerular Filtration Rate 63 ML/MIN Administered Medications Medications (Trade) Dose Ordered Sig/Brenda Route PRN Reason Start Time Stop Time Status Last Admin Dose Admin Methylprednisolone Sodium Succinate (SoluMEDROL INJ) 40 mg Q6HR IV PUSH 07/25/17 00:00 07/26/17 06:14 Acetaminophen (Tylenol) 650 mg Q24H PO 07/24/17 21:30 07/26/17 21:29 07/25/17 21:50 Diphenhydramine HCl (Benadryl) 25 mg Q24H PO 07/24/17 21:30 07/26/17 21:29 07/25/17 21:50 Immune Globulin 90 gm/Syringe / Bag 900 ml @ 27.13 mls/ hr Q24H IV 07/24/17 22:30 07/26/17 22:29 07/25/17 23:26 Sodium Chloride (NS Flush) 2 ml BID IV FLUSH 07/25/17 09:00 07/26/17 08:58 Allopurinol (Zyloprim) 300 mg DAILY PO 07/25/17 09:00 07/26/17 08:55 Amlodipine Besylate (Norvasc) 10 mg DAILY PO 07/25/17 09:00 07/26/17 08:55 Atenolol (Tenormin) 100 mg DAILY PO 07/25/17 09:00 07/26/17 08:56 Clonidine (Catapres) 0.1 mg BID PO 07/25/17 09:00 07/26/17 08:55 Losartan Potassium (Cozaar) 100 mg DAILY PO 07/25/17 09:00 07/26/17 08:55 Pravastatin Sodium (Pravachol) 20 mg DAILY PO 07/25/17 09:00 07/26/17 08:55 Objective Remarks GENERAL: Well dressed, well groomed male, sitting up on side of bed in [facility]. SKIN: Warm and dry. HEAD: Normocephalic. EYES: No injection or drainage. NECK: Supple, trachea midline. CARDIOVASCULAR: Regular rate and rhythm. RESPIRATORY: Breath sounds equal bilaterally. No accessory muscle use. GASTROINTESTINAL: Abdomen soft, non-tender, nondistended. EXTREMITIES: No cyanosis NEUROLOGICAL: awake and alert. normal speech. Assessment/Plan Problem List: (1) Thrombocytopenia ICD Codes: D69.6 - Thrombocytopenia, unspecified Status: Acute Plan: 07/26: patient is clear for discharge. will arrange follow up at oncology center for labs on Monday and appointment with Dr. Turner next monday. Rx written for Prednisone and Protonix. we will taper Prednisone at clinic. ---s/p 2 days of IVIG Assessment 76y/o male with ITP, admitted with platelet count of 1K. Attending Statement The exam, history, and the medical decision-making described in the above note were completed with the assistance of the mid-level provider. I reviewed and agree with the findings presented. I attest that I had a [id number] encounter with the patient on the same day, and personally performed and documented my assessment and findings in the medical record. No Bleeding S/P IVIG x 2 days. Plat 9 d/c home on prednisone Repeat cbc monday and see him on mon next week Hortensia Jones Jul 26, 2017 09:58 Keshia Turner MD Jul 26, 2017 16:32
--- NOTE | 2017-07-26 10:18 | MB ---
cc: Xavier Turner MD DATE: 07/25/2017 REASON FOR CONSULTATION: Consult requested by hospitalist for evaluation of acute ITP. HISTORY OF PRESENT ILLNESS: Preston is a pleasant 76-year-old male. He has a history of ITP since 2013. He was treated with the steroid and he had a good response. However, when the steroid was tapered down, his platelet count went down and he was treated with Rituxan in December 2014. His platelet count remains above 50. Then, in August of last year, his platelet count again dropped below 50 and was treated with the Rituxan one more time. His platelet count was running around 50. I have recommended to check his CBC with the platelets every 6 weeks. The patient had a routine CBC done yesterday. The results came back, showed that the platelet count has dropped significantly to only 1. The patient was contacted that he needs to come to the emergency room, as he has severe thrombocytopenia and he is at high risk for internal bleeding, which potentially could be fatal. The patient came into the emergency room last night and CBC was repeated and his platelet count was low at 5. He was not bleeding. ER physician had contacted me. I gave her the instruction to start him on Solu-Medrol and IVIG. I have also recommended that the patient should be admitted to the hospital, as this is a medical hematological emergency with a platelet count of only 1. The patient is now admitted to the hospitalist service. I have been asked to see him for further evaluation. The patient had finished IVIG just a few hours ago. He is feeling better. He has no evidence of bleeding. 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 REVIEW OF SYSTEMS: The rest of the review of systems is negative. PAST MEDICAL HISTORY: ITP, gout, hypercholesterolemia, hypertension, macular degeneration, non-Hodgkin's lymphoma, status post radiation treatment, in remission. PAST SURGICAL HISTORY: Bilateral knee surgery, cholecystectomy, lipoma, Infusaport, hand surgery, shoulder surgery and tonsillectomy. ALLERGIES: NONE. MEDICATIONS: Allopurinol, amlodipine, atenolol, clonidine, losartan, Osteo Bi-Flex, simvastatin. FAMILY HISTORY: No history of malignancy. SOCIAL HISTORY: The patient does not smoke cigarettes, does not drink alcohol. PHYSICAL EXAMINATION: GENERAL: This is a well-developed, well-nourished white male, in no apparent distress. VITAL SIGNS: Temperature 97.7, heart rate is 93, blood pressure is 172/101, O2 saturation is 94% . HEENT: PERRLA, EOMI, anicteric. No oral lesions are noted. NECK: Supple. There is no cervical, supraclavicular or axillary lymphadenopathy noted. LUNGS: Clear. No wheezing, rhonchi, or rales. HEART: Regular rate and rhythm. ABDOMEN: Soft, nontender. No hepatosplenomegaly. EXTREMITIES: No pedal edema. NEUROLOGIC: Awake, alert, oriented x 3. SKIN: No significant lesions are noted. ASSESSMENT: 1. Severe acute thrombocytopenia due to acute idiopathic thrombocytopenic purpura. 2. History of non-Hodgkin's lymphoma, status post radiation treatment. PLAN: I have reviewed his available records and I have discussed with the patient regarding the severe acute thrombocytopenia. When I saw him last time on 05/03, his platelet count was 49,000. Six weeks later, on 06/17, his platelet count was 41. Yesterday, his platelet count was only 1 and when he came to the emergency room last night, his platelet count was 5. The patient is now on Solu-Medrol 40 mg 4 times a day. He was started on IVIG 1 gm per kg last night and he just finished this morning. He will get the second dose tonight and we will repeat the CBC in the morning and most likely he will be going home after that. We discussed that with a platelet count of 1, he is at a high risk for internal bleeding, which sometimes could be fatal. The patient is appropriately admitted to the hospital for the treatment of severe acute thrombocytopenia and close monitoring. Further recommendations will be based on his hospital stay. Thank you for asking my opinion. MD AYALA Lora/NELSON , 10:47 PM , 11:18 PM [facility]
== END 2017-07-26 11:00 | disposition home or self-care (01) | DRG 813 ==
LOC: NED 18:18 → NEDA 22:46 → NEDH 07-25 03:03 → HCIN 07-25 05:03
PROVIDERS: ADMIT Hospitalist; ATTEND Hospitalist
PROC: 30233S1 Transfusion of Nonautologous Globulin into Peripheral Vein, Percutaneous Approach (ICD-10-PCS; principal; 2017-07-24)
DX: D69.59 Other secondary thrombocytopenia (principal); D69.3 Immune thrombocytopenic purpura; I10 Essential (primary) hypertension; E78.5 Hyperlipidemia, unspecified; E78.00 Pure hypercholesterolemia, unspecified; M10.9 Gout, unspecified; H35.30 Unspecified macular degeneration; Z85.72 Personal history of non-Hodgkin lymphomas; Z92.21 Personal history of antineoplastic chemotherapy; Z92.3 Personal history of irradiation; Z96.653 Presence of artificial knee joint, bilateral; Z87.891 Personal history of nicotine dependence
CPT/HCPCS: 71045; 80053; 81001; 83735; 84484; 85025; 85610; 85730; 86850; 86900; 86901; 93005; J1459; J2920; J7040; J7060

== ENCOUNTER → 2017-09-01 | Outpatient (CLI) | payer MEDICARE, OTHER ==
[~2017-09-01] MED LIST changes: -1-ME1LIQ PO; +AMLO10TA2 PO; -ATEN-104 PO; +ATEN100T PO; +CLON0.1T PO; -HYDR12.56; -HYZA100T4 PO; -LORTA5 PO; +LOSA100T PO; +PANT20 PO; +PRED20 PO; +SIMV10TA PO; -SIMV20 PO
[2017-09-01 09:20] LABS: AUTOMATED NEUTROPHIL # 1.8 TH/MM3 (1.8-7.7); EOSINOPHIL # 0.1 TH/MM3 (0-0.4); EOSINOPHIL % 3.4 % (0.0-4.0); HEMATOCRIT 36.1 % (39.0-51.0); LYMPH % 25.8 % (9.0-44.0); LYMPHOCYTE # 0.8 TH/MM3 (1.0-4.8); MEAN CELL VOLUME 91.5 FL (80.0-100.0); MEAN CORPUSCULAR HEMOGLOBIN 30.5 PG (27.0-34.0); MEAN CORPUSCULAR HGB CONC 33.3 % (32.0-36.0); MEAN PLATELET VOLUME 11.1 FL (7.0-11.0); MONO % 12.8 % (0.0-8.0); MONOCYTE # 0.4 TH/MM3 (0-0.9); PLATELET COUNT 96 TH/MM3 (150-450); RED BLOOD COUNT 3.94 MIL/MM3 (4.50-5.90); RED CELL DISTRIBUTION WIDTH 12.9 % (11.6-17.2); WHITE BLOOD COUNT 3.1 TH/MM3 (4.0-11.0)
[2017-09-01 11:01] LABS: ALBUMIN 3.4 GM/DL (3.4-5.0); AST (GOT) 28 U/L (15-37); BICARBONATE 26.7 MEQ/L (21.0-32.0); BLOOD UREA NITROGEN 18 MG/DL (7-18); CALCIUM 8.6 MG/DL (8.5-10.1); CHLORIDE 107 MEQ/L (98-107); CHOLESTEROL 168 MG/DL (120-200); CREATININE 1.21 MG/DL (0.60-1.30); GLOMERULAR FILTRATION RATE 58 ML/MIN (>89); GLUCOSE,FASTING 105 MG/DL (74-99); SODIUM (NA) 141 MEQ/L (136-145); TRIGLYCERIDES 196 MG/DL (42-150)
[2017-09-01 11:05] LABS: ALKALINE PHOSPHATASE 58 U/L (45-117); ALT (GPT) 28 U/L (12-78); CHOLESTEROL/ HDL RATIO 3.83 RATIO; HDL CHOLESTEROL 43.8 MG/DL (40.0-60.0); LDL CHOLESTEROL 85 MG/DL (0-99); TOTAL BILIRUBIN ADULT 0.5 MG/DL (0.2-1.0)
== END ==
LOC: PLAB 07:42
PROVIDERS: ATTEND Family Medicine
DX: E78.2 Mixed hyperlipidemia (principal); E83.51 Hypocalcemia; D69.3 Immune thrombocytopenic purpura
CPT/HCPCS: 36415; 80053; 80061; 82306; 83970; 84550; 85025